=== PATIENT | male | born 1985 | race Caucasian/White ===

== ENCOUNTER → 2022-06-09 07:28 | Outpatient (CLI) | payer BC, SELFPAY ==
--- NOTE | ~2022-06-09 | XR_ITS ---
EXAMINATION: XR ankle LT 2V DATE: 06/09/2022 07:39 INDICATION: Left ankle pain TECHNIQUE: Two views of the left ankle are obtained. COMPARISON: None. FINDINGS: There is no fracture, dislocation, or subluxation. The bones, soft tissues, and joint space s are normal. IMPRESSION: 1. No acute osseous abnormality. Reviewed, dictated and finalized at location A.
== END ==
PROVIDERS: PCP Family Medicine Adolescent Medicine; Visit Provider Family Medicine Adolescent Medicine
DX: S99.912A Unspecified injury of left ankle, initial encounter (principal); X58.XXXA Exposure to other specified factors, initial encounter
CPT/HCPCS: 73600

== ENCOUNTER 2022-08-16 11:27 | Emergency (ER) | payer BC, SELFPAY ==
[2022-08-16 11:45] VITALS: BP 143/85; PULSE 81; RESP 16; TEMP 36.9; O2SAT 98
--- NOTE | 2022-08-16 11:50 | ED.LOWEXIN ---
HPI - Extremity Injury (Lower) General Chief Complaint: Extremity Injury, Lower Stated Complaint: right 1st digit toe Time Seen by Provider: 08/16/22 12:15 Source: patient and RN notes reviewed Mode of arrival: ambulatory Limitations: no limitations History of Present Illness HPI Narrative: 57-year-old male with concern for pain base 1st digit of the right foot. Reports several day history of pain. Reports it hurts when she touches at night. He denies any relieving or aggravating factors. He denies injury. He denies fever, chills aches, sweats. MD complaint: other (Toe pain) Related Data Allergies Allergy/AdvReac Type Severity Reaction Status Date / Time Penicillins Allergy Unknown Rash Verified 08/16/22 11:53 Review of Systems Review of Systems: CONSTITUTIONAL: Denies malaise, chills, sweats, or fever. CARDIOVASCULAR: Denies chest pain, palpitations, or edema. RESPIRATORY: Denies cough or dyspnea. SKIN: Reports redness to the 1st digit of the right MUSCULOSKELETAL: Reports pain in the 1st digit of the right foot All systems reviewed & are unremarkable except as noted in HPI and below PMFSH Past Medical History Medical History (Updated 08/16/22 @ 12:19 by Vijaya Ortega NP) Mild persistent asthma Family History Family History (Updated 10/30/21 @ 14:01 by Woody Llamas MA) Grandparent Carcinoma of colon Heart disease Malignant neoplasm of prostate Father Heart disease Other Asthma Social History Social History (Updated 10/30/21 @ 14:02 by Woody Llamas MA) Smoking status: Never smoker Second hand tobacco smoke exposure: No Alcohol intake: current Drinks per week: 3 Substance use: never Substance use type: does not use Gender identity (if verbalized by the patient): Male Sexual Orientation (if Verbalized by the Patient): Straight or Heterosexual Spiritual care concerns: No Agree to blood products: Yes Comments At time of signature, agree with nursing past medical, surgical, social and family history. There is no relevant family history pertinent to the presenting complaint Exam Narrative: GENERAL: Well-appearing, well-nourished, and in no acute distress. HEAD: Normocephalic, atraumatic. EYES: PERRLA, conjunctivae clear ENT: Mucous membranes moist. NECK: Supple. No lymphadenopathy CHEST: Clear to auscultation. No respiratory distress. HEART: Regular rate and rhythm. SKIN: Warm, dry. Musc: Mild erythema and warmth to the base of the 1st digit of the right foot without induration, no edema, fluctuation right, open skin NEURO: Alert and oriented x3. PSYCH: Normal mood and affect Course Course Emergency Course: Patient is aware of diagnosis, understands and agrees to treatment plan. Anticipatory guidance given. Patient agrees to follow-up as directed and is aware of reasons to seek care at the emergency department. Portions of this record may have been created with voice recognition software Level of Care: Express Care Visit Vital Signs Vital signs: Vital Signs Temperature 98.5 F 08/16/22 11:45 Pulse Rate 81 08/16/22 11:45 Respiratory Rate 16 08/16/22 11:45 Blood Pressure 143/85 H 08/16/22 11:45 Pulse Oximetry 98 08/16/22 11:45 Oxygen Delivery Room Air 08/16/22 11:45 Temperature 98.5 F 08/16/22 11:45 Pulse Rate 81 08/16/22 11:45 Respiratory Rate 16 08/16/22 11:45 Blood Pressure 143/85 H 08/16/22 11:45 Pulse Oximetry 98 08/16/22 11:45 Oxygen Delivery Room Air 08/16/22 11:45 Reviewed. MDM - Extremity Injury (Lower) MDM Narrative Medical decision making narrative: Exam findings show no acute concerns or changes; patient is non-toxic appearing and is in no distress. Patient is appropriate for outpatient treatment and follow-up. Differential Diagnosis Differential diagnosis: Likely other (Gout, cellulitis, injury) Lab Data Attestation: I reviewed the patient's lab results. Critical Care Time Critical
== END 2022-08-16 12:28 | disposition home or self-care (01) ==
PROVIDERS: Emergency Provider Nurse Practitioner; PCP Family Medicine Adolescent Medicine
DX: M10.9 Gout, unspecified (principal)
CPT/HCPCS: 99213; G0463